=== PATIENT | male | born 1955 | race Caucasian/White ===

== ENCOUNTER 2017-02-09 11:15 | Inpatient (IN) | payer MEDICARE ==
[~2017-02-09] VITALS: Ht 180.3 cm; Wt 110.8 kg
[2017-02-22] MEDS ORDERED: ASPIR 8181 MG PO (08:45)
[2017-02-22] MEDS ORDERED: METOPROLOL TART50 MG PO (08:46)
[2017-02-22] MEDS ORDERED: LISINOPRIL-HCT1 EAC1 PO (08:47)
[2017-02-22] MEDS ORDERED: NORVASC 5 MG TAB5 MG PO (08:48)
[2017-02-22] MEDS ORDERED: METHIMAZOLE5 MG PO (08:48)
[2017-02-24 04:57] LABS: HEMOGLOBIN 11.6 gm/dl (14.0-17.5); RED BLOOD COUNT 3.62 M/UL (4.20-5.50); WHITE BLOOD COUNT 11.5 K/UL (4.5-11.0)
[2017-02-25 05:59] LABS: HEMOGLOBIN 10.1 gm/dl (14.0-17.5); RED BLOOD COUNT 3.1 M/UL (4.20-5.50); WHITE BLOOD COUNT 10.3 K/UL (4.5-11.0)
[2017-02-25 06:03] LABS: BUN/CREATININE RATIO 20 (0-10)
[2017-02-25] MEDS ORDERED: ELIQUIS5 MG PO (16:51)
[2017-02-25] MEDS ORDERED: NORCO 10-325 T1 EACH PO (16:52)
== END 2017-02-25 18:14 | disposition home or self-care (01) | DRG 470 ==
LOC: ZOBSOF 02-23 06:22 → M/S 02-23 18:36
PROVIDERS: Physician Assistant; ADMIT Orthopaedic Surgery
PROC: 0SRC0J9 Replacement of Right Knee Joint with Synthetic Substitute, Cemented, Open Approach (ICD-10-PCS; principal; 2017-02-23 09:15)
DX: M17.11 Unilateral primary osteoarthritis, right knee (principal); N17.9 Acute kidney failure, unspecified; D62 Acute posthemorrhagic anemia; J98.11 Atelectasis; I25.10 Atherosclerotic heart disease of native coronary artery without angina pectoris; J44.9 Chronic obstructive pulmonary disease, unspecified; I48.0 Paroxysmal atrial fibrillation; Z79.899 Other long term (current) drug therapy; Z79.82 Long term (current) use of aspirin; Z87.891 Personal history of nicotine dependence; Z95.1 Presence of aortocoronary bypass graft; Z96.652 Presence of left artificial knee joint; E05.90 Thyrotoxicosis, unspecified without thyrotoxic crisis or storm; G89.29 Other chronic pain; M25.561 Pain in right knee
CPT/HCPCS: 36415; 73560; 80048; 85025; 97110; 97116; 97535; C1776; J0171; J0690; J0735; J1200; J1885; J2250; J2270; J2274; J2405; J2710; J2795; J3010; J3370; J7050; J7120

== ENCOUNTER → 2017-02-22 | Outpatient (CLI) | payer MEDICARE ==
[~2017-02-22] MED LIST: ASPIR 8181 MG PO; LISINOPRIL-HCT1 EAC1 PO; METHIMAZOLE5 MG PO; METOPROLOL TART50 MG PO; NORVASC 5 MG TAB5 MG PO
[2017-02-22 12:54] LABS: BUN/CREATININE RATIO 15 (0-10)
== END ==
LOC: LAB 11:37
PROVIDERS: Orthopaedic Surgery
DX: Z01.812 Encounter for preprocedural laboratory examination (principal)
CPT/HCPCS: 36415; 80048; 86850; 86900; 86901